=== PATIENT | male | born 2005 | race Caucasian/White ===

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

== ENCOUNTER 2025-11-16 20:44 | Emergency (ER) | payer BC, SELFPAY ==
[2025-11-16 20:49] VITALS: BP 147/81; PULSE 87; RESP 18; TEMP 36.7; O2SAT 98; BMI 26.8
[2025-11-16 21:20] LABS: IDNOW Serial# 6674DD1D; Strep A Nucleic Acid Negative (Negative)
[2025-11-16 21:22] LABS: COVID-19 Test Negative (Negative)
[2025-11-16 21:23] LABS: Influenza B2 Negative (Negative)
--- OUTSIDE RECORDS SUMMARY | 2025-11-16 21:52 | XMS_ITS | Clinical Summary ---
Author Organization [facility] Address [address] [place] [address] Phone Care Team Providers Care Manager Pulmonary Name Role Phone Unavailable Primary Care Provider Unavailabl e Allergies Active Allergy Reactions Criticality Noted Date Comments Aspirin Anaphylaxis High 01/03/2014 Ceftriaxone Anaphylaxis High 01/03/2014 Ibuprofen Anaphylaxis High 01/03/2014 Penicillins Anaphylaxis High 01/03/2014 Medications acetaminophen 80 MG chewable tablet Chew 80 mg every 30 minutes as needed. Active Beclomethasone Diprop HFA (QVAR REDIHALER) 80 MCG/ACT aerosolIndicatio ns:Mild intermittent asthma with acute exacerbation Inhale 2 Inhalers 2 (two) times a day. 1 Inhaler 2 9 Active Additional Information Patient not taking.Reported on 02/18/2022 fluticasone 50 MCG/ACT nasal sprayIndications :Seasonal allergic rhinitis due to pollen Administer 2 sprays into each nostril daily as needed for rhinitis or allergies. 1 Units 2 9 Active Additional Information Patient not taking.Reported on 02/18/2022 fluconazole 150 MG tablet 9 Active albuterol (2.5 MG/3ML) 0.083% nebulizer solutionIndicati ons:Disorder of lower airway Take 3 mL (2.5 mg total) by nebulization every 8 (eight) hours as needed for wheezing or shortness of breath. 1 Package 0 Active Additional Information Patient not taking.Reported on 02/18/2022 cholecalciferol 50 MCG (2000 UT) capsuleIndicatio ns:Vitamin D deficiency 4000IU daily x 3 months 60 capsule 2 0 Active Additional Information Patient not taking.Reported on 02/18/2022 loratadine (Claritin) 10 MG tabletIndication s:Seasonal allergic rhinitis due to pollen Take 1 tablet (10 mg total) by mouth nightly as needed for allergies. 100 tablet 2 1 Active Additional Information Patient not taking.Reported on 02/18/2022 escitalopram 10 MG tabletIndication s:Anxiety TAKE 1 TABLET BY MOUTH EVERY DAY IN THE MORNING 90 tablet 1 1 Active Additional Information Patient not taking.Reported on 02/18/2022 benzoyl peroxide 10 % external wash WASH THE AFFECTED AREA(S) EVERY DAY 2 Active Blood Pressure Monitoring (Omron 3 Series BP Monitor) device USE TO CHECK BLOOD PRESSURE ONCE TO TWICE DAILY 2 Active clindamycin-richi oyl peroxide 1-5% gel APPLY BY TOPICAL ROUTE TO AFFECTED AREA EVERY MORNING 2 Active albuterol HFA 108 (90 Base) MCG/ACT inhalerIndicatio ns:COVID-19 Inhale 2 puffs every 4 (four) hours as needed for wheezing or shortness of breath. 2 Units 2 Active Spacer/Aero-Hold Chamber Mask miscIndications: COVID-19 Use as directed 2 each 2 Active Nirmatrelvir&Rit onavir 300/100 (Paxlovid, 300/100,) 20 x 150 MG & 10 x 100MG tablet therapy packIndications: COVID-19 Take 1 dose ( 2 capsules nirmatrelvir 150 mg and 1 capsule ritonavir 100 mg ) by mouth twice a day for 5 days. 1 each 2 Active Active Problems Problem Noted Date Diagnosed Date History of COVID-19 03/05/2021 Overview (03/05/2021): February 2021 Generalized anxiety disorder 10/23/2020 Assessment & Plan (10/16/2021 11:07 AM EST): Artemio will worm picker his medications today and text me in am how he feels after taking the first dose. Depression, unspecified 10/21/2020 Overview (02/18/2022): Presently on no meds, not in therapy. clinician appt scheduled Historic:10 mg of Escitalopram was started will follow up in 2 weeks, black box warnings reviewed with mom and patient Assessment & Plan (10/16/2021 11:09 AM EST): Artemio started counseling, which has been helpful. PHQ-9 score has increased compared to a week ago. Artemio understands to start Lexapro MEL. Acne vulgaris 10/21/2020 Assessment & Plan (10/16/2021 11:11 AM EST): Drinking 1-2 glasses of water while on doxy was encouraged. 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 Headache Overview (04/23/2018): migraine w/o aura Resolved Problems Problem Noted Date Diagnosed Date Resolved Date Refused influenza vaccine 11/27/2019 Rash of genitalia 09/25/2019 11/27/2019 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 06/25/2019 Immunizations Immunization Administration Dates Next Due DTaP 02/11/2006, 4,2003,09/29,2003 HPV Vaccine 9 Valent 06/10/2018 HPV, Quadrivalent 06/11/2017 Hep A, pediatric, unspecifie d formulation 12/25/2006,02/11/2006 Hep B, ped/adol 09/13/2004,2003,2003 HiB 02/11/2006, 4,2003,07/13 IPV 05/15/2007, 4,2003,07/13 Influenza, injectable, quadr ivalent, preservative free 10/09/2021,10/18/2020 Influenza, injectable, trivalent 11/06/2012 MMR 05/15/2007,06/16/2004 Meningococcal B Trumenba 06/23/2019,05/14/2019 Meningococcal Conj (Menactra) MCV4P 06/23/2019,0 04/15/2015 Pneumococcal Conjugate 10/04/2005,2002,2003,07/13 Tdap 10/18/2020,04/15/2015 Varicella 05/15/2007,06/16/2004 Family History Medical History Relation Name Comments Asthma Father Relation Name Status Comments Father Asthma Maternal Grandfather Diabete s mellitus, Hypertensive disorder Maternal Grandmother Disease of liver, Hypertensive disorder Mother Food allergy Paternal Grandmother Hyperte nsive disorder Social History Tobacco Use Types Packs/Day Years Used Date Smoking Tobacco: Never Smokeless Tobacco: Never Comments:Never Alcohol Use Standard Drinks/Week Comments No 0 (1 standard drink = 0.6 oz pur e alcohol) Hunger/Food Answer Date Recorded In the last 12 months, did y ou or your family ever eat less than you felt you should because there wasn't enough money for food? No 02/18/2022 Stable Housing Answer Date Recorded Are you worried that in the next 2 months you may not have stable housing? No 02/18/2022 Transportation Concerns Answer Date Rec orded In the last 12 months, have you or your family ever had to go without healthcare because you didn't have a way to get there? No 02/18/2022 Hazards in Home Answer Date Recorded Think about the place you li ve. Do you have problems with any of the following? Pests (mice or roaches), mold, no/not working smoke detectors, water leaks, no window guards. No 2021 Financing Utilities Answer Date Recorde d In the last 12 months, has t he electric, gas, oil, or water company threatened to shut off your services in your home? No 02/18/2022 Safety at Home Answer Date Recorded Are you or your family worried about feeling saf e in your home? No 02/18/2022 Outside Support Answer Date Recorded Do you feel that you need mo re support from other people or programs to help you care for yourself or your family? No 02/18/2022 Understanding Health Concerns Answer Da te Recorded Do you need help understandi ng your or your child's healthcare needs (diagnosis, medications, plan, etc.)? No 02/18/2022 Financing Health Concerns Answer Date R ecorded In the last 12 months, was t here a time when your child needed to see a doctor or get medications or supplies but could not because of cost? No 02/18/2022 Missing School or Work Answer Date Michael rded Did you or your child miss s chool or work because of a health problem that could have been avoided? No 02/18/2022 Sex and Gender Information Value Date Recorded Sex Assigned at Not on file Legal Sex Male 12:17 PM EST Gender Identity Male 10/08/2021 9:31 AM EST Sexual Orientation Not on file Last Filed Vital Signs Vital Sign Reading Time Taken Comments Blood Pressure 127/73 02/18/2022 1:29 PM EDT Pulse 89 02/18/2022 1:29 PM EDT Temperature 36.7 C (98.1 F) 02/18/2022 1:29 PM EDT Respiratory Rate - - Oxygen Saturation 98% 10/09/2021 10:26 AM EST Inhaled Oxygen Concentration - - Weight 109 kg (239 lb 8 oz) 02/18/2022 1:29 PM E DT Height 180.3 cm (5' 11 ) 02/18/2022 1:29 PM EDT Body Mass Index 33.4 02/18/2022 1:29 PM EDT Plan of Treatment Health Maintenance Due Date Last Done Comments Influenza Vaccines (#1) 2025 08/13/20, 10/09/2021, 10/18/2020, Additional history exists COVID-19 Vaccine (4 - 2024-2 6 season) 2025 12/06/2022, 06/20/2021, 05/18/2021 DTaP,Tdap,and Td Vaccines (7 - Td or Tdap) 10/18/2030 10/18/2020, 04/15/2015, 02/11/2006, Additional history exists Hepatitis B Vaccines Completed 09/13/2004, 2003, 2003 Pneumococcal Vaccine Completed 10/04/2005, 10/04/2005, 2003, Additional history exists HIB Vaccines Completed 02/11/2006, 01/23, 2003, Additional history exists Hepatitis A Vaccines Completed 12/25/2006, 02/12/20 IPV Vaccines Completed 05/15/2007, 08/24, 2003, Additional history exists MMR Vaccines Completed 05/15/2007, 06/16/2004 Varicella Vaccines Completed 05/15/2007, 06/16/2004 HPV Vaccines Completed 06/10/2018, 06/11/2017 Men B Vaccine Discontinued 06/23/2019, 05/14/2019 Meningococcal Vaccine Completed 06/23/2019, 015 Insurance [facility] [employer] [address] [address] FEDERAL FEDERAL [facility] FED[employer]AL [facility] FED[employer]AL
--- OUTSIDE RECORDS SUMMARY | 2025-11-16 21:52 | XMS_ITS | Encounter Summary ---
Author Organization [facility] Address [address] [place] [address] Phone Care Team Providers Care Service Cleaner Name Role Phone Ne Leonard MD Primary Care Prov ider Reason for Visit * Reason Comments Med Refill Encounter Details Date Type Department Care Team (Late st Contact Info) Description 03/15/2023 Refill [facility] [address] [phone] Ne Leonard MD [address] [address] COVID-19 Social History Tobacco Use Types Packs/Day Years [...] AM EST Sexual Orientation Not on file documented as of this encounter Miscellaneous Notes * Telephone Encounter - Rosalie Pond LPN - 03/15/2023 11:09 AM EDT I left v/m for patient/parent to confirm whether refill is needed. documented in this encounter Plan of Treatment Not on file documented as of this encounter Visit Diagnoses Diagnosis COVID-19 documented in this encounter Care Teams Service Cleaner Relationship Specialty Start Date End Date Tyminska-Paluchowska, Ne, MD [address] [place] [address] PCP - General 09/15/17 07/06/24 documented as of this encounter
--- OUTSIDE RECORDS SUMMARY | 2025-11-16 21:52 | XMS_ITS | Clinical Summary ---
Author Organization [employer] Address [address] [facility] [address] [place] [address] Care Team Providers Care Hand Kiss Setter Name Role Phone Unavailable Primary Care Provider Unavailabl e Immunizations Immunization Administration Dates Next Due Pfizer Covid-19 Vaccine 12+ 06/20/2021, Pfizer Covid-19 Vaccine 12+ Bivalent 12/06/2022 Social History Tobacco Use Types Packs/Day Years Used Date Smoking Tobacco: Never Assessed Sex and Gender Information Value Date Recorded Sex Assigned at Male 09/23/2022 10:34 AM EDT Legal Sex Male 10:34 AM EDT Gender Identity Male 09/23/2022 10:34 AM EDT Sexual Orientation Straight 09/23/2022 10 :34 AM EDT Last Filed Vital Signs Vital Sign Reading Time Taken Comments Blood Pressure 138/88 10/01/2022 10:47 AM EST Pulse 88 10/01/2022 9:48 AM EST Temperature - - Respiratory Rate - - Oxygen Saturation - - Inhaled Oxygen Concentration - - Weight 108 kg (237 lb 6.4 oz) 10/01/2022 9:48 AM EST Height 183 cm (6' 0.05 ) 10/01/2022 9:48 AM EST Body Mass Index 32.15 10/01/2022 9:48 AM EST Plan of Treatment Health Maintenance Due Date Last Done Comments Chlamydia and Gonorrhea Screening 2003 Depression Screening 2003 HIV Screening 2003 SDOH Screening 2003 Disability Screening 2003 Alcohol/Substance Use Screening 2015 Tobacco Screening 2015 Family Planning (PISQ) 2018 Meningococcal B Vaccine (3 of 3 - Trumenba SCDM 3-Dose Series) 11/13/2019 06/23/2019, 05/14/2019 Hepatitis C Screening 2021 COVID-19 Vaccine ( season) 2025 12/06/2022, 06/20/2021, 05/18/2021 Influenza Vaccine (#1) 2025 , 10/18/2020, 11/06/2012 DTaP/Tdap/Td Vaccines (7 - Td or Tdap) 10/18/2030 10/18/2020, 04/15/2015, 02/11/2006, Additional history exists Pneumococcal Vaccine: Pediatrics (0 to 5 Years) and At-Risk Patients (6 to 49) Years (2 of 2 - PCV20 or PCV21) 2053 10/04/2005, 10/04/2005, 2003, Additional history exists Zoster Vaccines (1 of 2) 2053 RSV Patients and Patients Aged 60 years or older (1 - 1-dose 75+ series) 2078 Hepatitis B Vaccines Completed 09/13/2004, 09/13/2004, 2003, Additional history exists HIB Vaccines Completed 02/11/2006, 01/23, 2003, Additional history exists Hepatitis A Vaccines Completed 12/25/2006, 02/11/2006, 02/11/2006 IPV Vaccines Completed 05/15/2007, 08/24, 2003, Additional history exists HPV Vaccines Completed 06/10/2018, 05/24, 06/11/2017 Meningococcal Vaccine Completed 06/23/2019, 015 RSV under 20 months Aged Out No longe r eligible based on patient's age to complete this topic Rotavirus Vaccines Aged Out No longer eligible based on patient's age to complete this topic Insurance [facility] FEDERAL
--- OUTSIDE RECORDS SUMMARY | 2025-11-16 21:52 | XMS_ITS | Encounter Summary ---
Author Organization [facility] Address [address] [place] [address] Phone Care Team Providers Care Assistant Administrator Name Role Phone Ne Leonard MD Primary Care Prov ider Reason for Visit * Reason Comments Med Refill Encounter Details Date Type Department Care Team (Late st Contact Info) Description 05/20/2019 Refill [facility] [address] [phone] Ne Leonard MD [address] [phone] Mild persistent asthma, unspecified whether complicated Social History Tobacco Use Types Packs/Day Years Used Date Smoking Tobacco: Never Smokeless Tobacco: Never Comments:Never Alcohol Use Standard Drinks/Week Comments No 0 (1 standard drink = 0.6 oz pur e alcohol) Sex and Gender Information Value Date Recorded Sex Assigned at Not on file Legal Sex Male 12:17 PM EST Gender Identity Male 10/08/2021 9:31 AM EST Sexual Orientation Not on file documented as of this encounter Plan of Treatment Not on file documented as of this encounter Visit Diagnoses Diagnosis Mild persistent asthma, unspecified whether complicated documented in this encounter Care Teams Assistant Administrator Relationship Specialty Start Date End Date Ne Leonard MD [address] [place] [address] PCP - General 09/15/17 07/06/24 documented as of this encounter
--- OUTSIDE RECORDS SUMMARY | 2025-11-16 21:52 | XMS_ITS | Encounter Summary ---
Author Organization [facility] Address [address] [place] [address] Phone Care Team Providers Care Gas Pumping Station Operator Name Role Phone Ne Leonard MD Primary Care Prov ider Encounter Details Date Type Department Care Team (Late st Contact Info) Description 01/22/2018 Conversion Encounter [facility] [address] [phone] Ne Luis MD [address] [phone] Social History Tobacco Use Types Packs/Day Years Used Date Smoking Tobacco: Never Comments:Never Sex and Gender Information Value Date Recorded Sex Assigned at Not on file Legal Sex Male 12:17 PM EST Gender Identity Male 10/08/2021 9:31 AM EST Sexual Orientation Not on file documented as of this encounter Plan of Treatment Not on file documented as of this encounter Visit Diagnoses Not on filedocumented in this encounter Care Teams Gas Pumping Station Operator Relationship Specialty Start Date End Date Ne Leonard MD [address] [address] PCP - General 09/15/17 07/06/24 documented as of this encounter
--- OUTSIDE RECORDS SUMMARY | 2025-11-16 21:52 | XMS_ITS | Encounter Summary ---
Author Organization [facility] Address [address] [place] [address] Phone Care Team Providers Care Car Dumper Name Role Phone Ne Leonard MD Primary Care Prov ider Reason for Visit * Reason Comments Med Refill Encounter Details Date Type Department Care Team (Late st Contact Info) Description 12/12/2022 Refill [facility] [address] [phone] Ne Leonard MD [address] [address] COVID-19 Social History Tobacco Use Types Packs/Day [...] COVID-19 documented in this encounter Care Teams Car Dumper Relationship Specialty Start Date End Date Ne Leonard MD [address] [place] [address] PCP - General 09/15/17 07/06/24 documented as of this encounter
--- OUTSIDE RECORDS SUMMARY | 2025-11-16 21:52 | XMS_ITS ---
Author Name [facility] Organization Unknown History of Medication Use Medication Directions Dispensed Refills Start Date End Date Stat us No known medications No known medications active Problems Problem Status Onset Date Problem Type Date of Resolution Source Screening examination for pulmonary tuberculosis active EncounterDiagnosisAct [facility] Screening examination for pulmonary tuberculosis active EncounterDiagnosisAct [facility] Immunizations Vaccine Date Source Lot Number Status Flucelvax Trivalent Prefille d Syringe (18+ Months) 11/01/2025 [facility] [id number] completed Flucelvax Trivalent Prefille d Syringe (18+ Months) 11/01/2025 [facility] [id number] completed Pfizer Comirnaty Covid-19 0. 3mL PFS IM; Without Preservative (12+ yrs) 11/01/2025 [facility] [id number] c ompleted Pfizer Comirnaty Covid-19 0. 3mL PFS IM; Without Preservative (12+ yrs) 11/01/2025 [facility] [id number] c ompleted PPD Test 11/01/2025 [facility] [id number] completed PPD Test 11/01/2025 [facility] [id number] completed Encounters Encounter Type Encounter Reason Primary Diagnosis Location Date Ambulatory Tb Skin Test [place] Encounter for screening for respiratory tuberculosis [facility] 11/04/2025 Ambulatory TB Skin Test Placement Encounter for screening for respiratory tuberculosis [facility] 11/01/2025 Care Team Organization Name Specialty Phone Email Start Date End Da te [facility] NO PCP Primary Care 11/02
--- NOTE | 2025-11-16 22:10 | ED_ITS ---
HPI - URI/Sore Throat General Chief Complaint: Upper Respiratory Symptoms Stated Complaint: flu like Time Seen by Provider: 11/16/25 21:51 History of Present Illness ED Provider: nikki CONNER Narrative: Author / Clinician: Brian Apple MD Chief Complaint Sore throat and nasal congestion for several days. History of Present Illness Patient is Jaspreet (last name not provided) who presents with several days of throat pain and nasal congestion. Throat pain worsens with sneezing and coughing. He reports decreased appetite. He took acetaminophen (Tylenol) with some relief. He ate chili earlier today. He had a brief headache earlier but denies headache at this time. No current nausea. Past medical history significant for asthma without current daily controller medication use. He occasionally uses [id number] loratadine (Claritin) and fluticasone nasal spray (Flonase) for allergies, though not on a daily basis. Review of Systems ? Constitutional: Decreased appetite. ? HEENT: Sore throat, nasal congestion; no current headache. ? Respiratory: Cough, denies wheezing or shortness of breath. ? GI: Denies nausea. No additional systems reviewed. --- Physical Examination Vital Signs: Measure Value ------- ----- Physical Exam: Gen: Alert, awake, well-appearing, well-hydrated. Head: Atraumatic. ENT: Moist mucosa; pharynx visualized without mention of exudate; no obvious trauma. Neck: Supple. Respiratory: Breathing comfortably, no distress. Clear to auscultation bilaterally, symmetric chest expansion, no wheeze, rales, or rhonchi. Neuro: Alert. Gross movement of all extremities intact. Psych: Calm. --- Assessment & Plan Assessment: Viral upper respiratory infection with sore throat and nasal congestion. History of asthma without current exacerbation. Also, superficial oral wound/laceration discussed; possible need for stitches, anesthesia, and potential for scarring, but wound expected to heal on its own. Plan: - Supportive care: Ibuprofen and acetaminophen as needed for pain/fever. - Increase oral fluids (cold fluids as tolerated) and rest. - Continue [id number] intranasal fluticasone (Flonase) and loratadine (Claritin) as needed for nasal congestion/allergy symptoms. - Oral wound/laceration: Discussed possible need for stitches and anesthesia; wound expected to heal on its own but may result in scarring. Monitor for worsening or signs of infection. - Return for care if fever develops, throat pain worsens, difficulty breathing, wheezing, or other concerning symptoms. Medical Decision Making This is a self-limited viral illness without evidence of bacterial infection or asthma exacerbation. Exam reveals clear lungs and normal oxygenation; no indications for antibiotics. Risk: - Low: Acute Uncomplicated - Moderate: Acute with Systemic Symptoms - High: Threat to life/bodily Functions Data Analysis: - Imaging: [ ] - ECG: Independent interpretation of the ECG: [ ] - POCUS: if performed independently see separate documentation Additional Complexity: - Social Determinants of health: [ ] - Consults: [ ] - Independent review of external records available: [ ] --- ED Course, Updates CT scan of mouth/jaw reviewed ? no fracture or acute findings. Patient tolerated examination well; lungs remained clear without wheeze. Disposition Critical Care: [N/A] Related Data Previous Rx's ?Medication ?Instructions ?Recorded albuterol sulfate 90 mcg/actuation 90 mcg inhalation Q 6H PRN 02/25/21 breath activated powder shortness of breath or wheez ing #1 inhaler,sensor (Proair Digihaler) ea Allergies Allergy/AdvReac Type Severity Reaction Status Date / Time aspirin (ASA) Allergy Severe HIVES, Verified 11/16/25 20:53 anaphylaxis ceftriaxone (CEFTRIAXONE) Allergy Unknown ANAPHYLAXIS Verified 11/16/25 20:53 ibuprofen (IBUPROFEN) Allergy Unknown HIVES Verified 11/16/25 20:53 penicillin V Allergy Unknown anaphylaxis Verified 11/16/25 20:53 Penicillins (PCN) Allergy Unknown HIVES Verified 11/16/25 20:53 [facility] Past Medical History Medical History Asthma Social History Social History Advance Directives: No Advance Directives Information Provided: No Do you have a plan to hurt others: No Plan Physical Exam Vital Signs: Vital Signs: Last Vital Signs Temp 99.1 F 11/16/25 22:16 Pulse 90 11/16/25 22:16 Resp 16 11/16/25 22:16 BP 139/79 11/16/25 22:16 Pulse Ox 100 11/16/25 22:16 O2 Del Method Room Air 11/16/25 22:16 BMI result Body Mass Index 26.8 Medical Decision Making Lab Data Labs: Lab Results 11/16/25 Range/Units 20:59 COVID-19 ([facility]) Negative (Negative) COVID-19 Clin Com See Note Influenza Type A (ZULMA) Negative (Negative) Influenza Type B (ZULMA) Negative (Negative) Influenza A & B Note See Note S. pyogenes GrpA ZULMA Negative (Negative) Discharge Plan Discharge Clinical Impression: Acute viral syndrome Patient Disposition: Home, Self-Care Instructions: Viral Syndrome (ED) Additional Instructions: You were tested for flu COVID and RSV this was negative you were tested for strep throat this was negative you had clear lungs Prescriptions: No Action Proair Digihaler 90 mcg/actuation aero powdr breath act w/sensor 90 mcg inhalation Q6H PRN (Reason: shortness of breath or wheezing) Qty: 1 0RF Rx Instructions: You can substitute with another inhaler covered by his insurance Interventions: ED Discharge Assessment Last Done: 11/16/25 22:16 Discharge Date/Time: 11/16/25 22:16 Print Language: Portuguese
[2025-11-16 22:16] VITALS: BP 139/79; PULSE 90; RESP 16; TEMP 37.3; O2SAT 100
== END 2025-11-16 22:16 | disposition home or self-care (01) ==
PROVIDERS: Emergency Provider Emergency Medicine
DX: B34.9 Viral infection, unspecified (principal); R05.9 Cough, unspecified; Z03.818 Encounter for observation for suspected exposure to other biological agents ruled out
CPT/HCPCS: 87502; 87635; 87651; 99282; 99283